=== PATIENT | female | born 1985 | race Caucasian/White ===

== ENCOUNTER 2017-09-10 23:29 | Emergency (ER) | payer MEDICAID ==
[~2017-09-10] VITALS: Ht 165.1 cm; Wt 68.0 kg
[~2017-09-10 23:29] MED LIST: SERT100 PO
[2017-09-10 23:30] VITALS: BP 147/80; PULSE 68; RESP 16; TEMP 98.2; O2SAT 100
[2017-09-10] MEDS ORDERED: diphenhydrAMINE HCL 50 MG/ML VIAL IVP ONE (23:45)
[2017-09-10] MEDS ORDERED: SODIUM CHLOR 0.9% 1000 ML INJ 1,000 ML IV ONE (23:45)
[2017-09-10] MEDS ORDERED: EPINEPHrine HCL (1:1000) 1 MG/ML VIAL IM ONE (23:45)
[2017-09-10] MEDS ORDERED: SODIUM CHLORIDE 0.9% FLUSH 10 ML FLUSH IV FLUSH PRN (23:45)
[2017-09-10] MEDS ORDERED: methylPREDNISolone SOD SUCC 125 MG/2 ML VIAL IV PUSH ONE (23:45)
[2017-09-10] MEDS ORDERED: FAMOTIDINE 20 MG/2 ML VIAL IV PUSH ONE (23:45)
[2017-09-10 23:56] VITALS: BP 133/70; PULSE 79; RESP 16; O2SAT 100
[2017-09-11 00:09] VITALS: BP 130/72; PULSE 79; RESP 16; O2SAT 100
[2017-09-11 00:41] VITALS: BP 127/74; PULSE 78; RESP 16; O2SAT 100
[2017-09-11 01:24] VITALS: BP 127/83; PULSE 78; RESP 16; O2SAT 100
[2017-09-11] MEDS ORDERED: MEDR4PAK PO (02:11)
--- NOTE | 2017-09-11 02:12 | PD ---
HPI Chief Complaint: Allergic/Adverse Reaction Time Seen by Provider: 23:40 Travel History International Travel<30 days: No Contact w/Intl Traveler<30days: No Traveled to known affect area: No History of Present Illness HPI 32-year-old female presents to the emergency department by private transportation for complaint of sensation of tightness in her throat after taking Zomig for the first time. Patient states that she started taking new medication for her migraine headaches a proximal 3:30 minutes prior to arrival to the emergency department approximately 10 minutes after taking the medication she started noticing tightness in her throat. No change in her voice no hoarseness or stridor. Patient's had sensation of tongue swelling. But does not noticed any swelling. Patient's had no lip edema. Patient denies any prior use of this medication. Patient denies any urticaria. Patient denies any near-syncope or syncope. No chest pain palpitations shortness of breath or wheezing. Patient was seen recently for diagnosis of bronchitis and had some wheezing at that time. PFSH Past Medical History Narrative Medical Depression irregular heartbeat headache; no tobacco use. No substance use; nursing notes reviewed Depression: Yes Cardiovascular Problems: Yes (STATES IRREGULAR RHYTHMN) Diminished Hearing: No ?: Not LMP: 09/02/17 Past Surgical History Hysterectomy: No (MULTIPLE "FEMALE" SURGERIES) Social History Alcohol Use: No (QUIT 1 YEAR AGO) Tobacco Use: No (QUIT 1 MONTH AGO) Substance Use: No Allergies-Medications (Allergen,Severity, Reaction): Coded Allergies: morphine (Unverified Allergy, Severe, HIVES, 06/09/17) zolmitriptan (Verified Allergy, Intermediate, Shortness of Breath, ) Uncoded Allergies: EPIDURAL (Allergy, Severe, 01/06/11) Reported Meds & Prescriptions Reported Meds & Active Scripts Active Reported Zoloft (Sertraline HCl) 100 Mg Tab 100 Mg PO DAILY Review of Systems Except as stated in HPI: all other systems reviewed are Neg General / Constitutional: No: Fever, Chills Eyes: No: Visual changes HENT: No: Headaches, Neck Pain Cardiovascular: No: Chest Pain or Discomfort Respiratory: No: Shortness of Breath Gastrointestinal: No: Nausea, Vomiting Genitourinary: No: Frequency Neurologic: No: Weakness, Dizziness, Syncope Psychiatric: Positive: Anxiety Hematologic/Lymphatic: No: Lymph Node Enlargement Physical Exam Narrative GENERAL: Well-developed well-nourished female in no respiratory distress no stridor or hoarseness appears anxious SKIN: Warm and dry. No urticaria. HEAD: Normocephalic. EYES: No scleral icterus. No injection or drainage. ENT: Mucous membranes moist airway is patent no lip tongue or posterior pharyngeal edema identified. NECK: Supple, trachea midline. No JVD or lymphadenopathy. CARDIOVASCULAR: Regular rate and rhythm without murmurs, gallops, or rubs. RESPIRATORY: Breath sounds equal bilaterally. No accessory muscle use. GASTROINTESTINAL: Abdomen soft, non-tender, nondistended. MUSCULOSKELETAL: No cyanosis, or edema. BACK: Nontender without obvious deformity. No CVA tenderness. Data Data Last Documented VS Vital Signs Date Time Temp Pulse Resp B/P (MAP) Pulse Ox O2 Delivery O2 Flow Rate FiO2 09/11/17 01:24 78 16 127/83 (98) 100 09/11/17 00:41 Room Air 09/10/17 23:30 98.2 Orders Orders Ecg Monitoring (09/10/17 23:41) Iv Access Insert/Monitor (09/10/17 23:41) Oximetry (09/10/17 23:41) Diphenhydramine Inj (Benadryl Inj) (09/10/17 23:45) Methylprednisolone So Succ Inj (Solumedr (09/10/17 23:45) Famotidine Inj (Pepcid Inj) (09/10/17 23:45) Sodium Chloride 0.9% Flush (Ns Flush) (09/10/17 23:45) Epinephrine (1:1000) Inj (Adrenalin (1:1 (09/10/17 23:45) Sodium Chlor 0.9% 1000 Ml Inj (Ns 1000 M (09/10/17 23:45) Ed Discharge Order (09/11/17 02:06) MDM Medical Decision Making Medical Screen Exam Complete: Yes Emergency Medical Condition: Yes Medical Record Reviewed: Yes Differential Diagnosis Acute allergic reaction adverse medication reaction angioedema and anaphylaxis Narrative Course patient placed on monitoring tech with continuous pulse oximetry 100% on room air; IV access obtained; patient administered epinephrine 1-1000 concentration 0.3 cc IM administered and then received IV Solu-Medrol 125 mg, Benadryl 25 mg, Pepcid 20 mg IV Patient resting comfortably patient continues to note that there is improvement of symptoms and denies any throat tightness and denies any shortness of breath. Patient monitored additional hour resting comfortably vital signs remained stable Patient resting comfortably voicing no concerns or complaints desirous of being discharged to home Diagnosis Primary Impression: Allergic reaction caused by a drug Qualified Codes: T78.40XA - Allergy, unspecified, initial encounter Referrals: Primary Care Physician 1 day Patient Instructions: General Instructions Additional Instructions: Increase fluid hydration Do not take any further zolmitriptan Follow-up with her primary care provider call office in a.m. to schedule follow- up appointment Complete course of Medrol Dosepak Take Zantac 150 twice daily for 7 days Continue Benadryl 25-50 mg every 4-6 hours as needed for any pruritus or itching or allergic reaction symptoms OR may use Zyrtec 10 mg once daily per package directions Return to the emergency department for any concerns or change in condition No work times one day Med/Other Pt SpecificInfo: Prescription(s) given Scripts Methylprednisolone Dosepak (Medrol Dosepak) 4 Mg Dspk 4 MG PO DIRECTED, #1 DSPK 0 Refills Per Pharmacist direction Prov: Yancy Painting MD 09/11/17 Disposition: 01 DISCHARGE HOME Condition: Stable Yancy Painting MD Sep 11, 2017 02:12
[2017-09-11 02:34] VITALS: BP 113/72
== END 2017-09-11 02:39 | disposition home or self-care (01) ==
LOC: PHED 23:29
DX: T50.905A Adverse effect of unspecified drugs, medicaments and biological substances, initial encounter (principal); F32.9 Major depressive disorder, single episode, unspecified
CPT/HCPCS: 96361; 96372; 96374; 96375; 99284; J0171; J1200; J2930; J7030